=== PATIENT | male | born 1965 | race Caucasian/White ===

== ENCOUNTER 2016-05-01 10:00 | Emergency (ER) | payer OTHER ==
--- NOTE | 2016-05-01 11:01 | ED ---
General Adult HPI - General Chief complaint: Fall Stated complaint: fall off roof Time Seen by Provider: 05/01/16 10:48 Source: patient, family, RN notes reviewed Mode of arrival: wheelchair Limitations: no limitations - History of Present Illness Initial comments: Patient 50-year-old male who presents emergency room today with a chief complaint of a fall that occurred approximately 2 hours ago. Patient does admit that he was climbing up onto a roof when the ladder fell out from underneath him and he fell approximately 9 feet. States landed on his feet and then rolled off to the left side. Patient denies any head injury or loss conscious. Does admit to pain to his ankles bilaterally. Patient denies any other complaints or injuries. Patient denies any recent fever, chills, shortness of breath, chest pain, back pain, abdominal pain, nausea or vomiting, numbness or tingling, dysuria or hematuria, constipation or diarrhea, headaches or visual changes, or any other complaints. - Related Data Home Medications Medication Instructions Recorded Confirmed Allopurinol [Zyloprim] 300 mg PO DAILY 05/01/16 05/01/16 Chlorthalidone [Hygroten] 50 mg PO DAILY 05/01/16 05/01/16 Metoprolol Succinate (ER) [Toprol 100 mg PO DAILY 05/01/16 05/01/16 Xl] Previous Rx's Medication Instructions Recorded Hydrocodone/Acetaminophen [[place] 1 each PO Q6HR PRN #20 tab 05/01/16 5-325] Allergies Allergy/AdvReac Type Severity Reaction Status Date / Time No Known Allergies Allergy Verified 05/01/16 10:43 Review of Systems ROS Statement: Those systems with pertinent positive or pertinent negative responses have been documented in the HPI. ROS Other: All systems not noted in ROS Statement are negative. Past Medical History Past Medical History: Hypertension History of Any Multi-Drug Resistant Organisms: None Reported Past Surgical History: No Surgical Hx Reported Past Psychological History: No Psychological Hx Reported Smoking Status: Never smoker Past Alcohol Use History: Occasional Past Drug Use History: None Reported General Exam - General Exam Comments Initial Comments: General: The patient is awake and alert, in no distress, and does not appear acutely ill. Eye: Pupils are equal, round and reactive to light, extra-ocular movements are intact. No nystagmus. There is normal conjunctiva bilaterally. No signs of icterus. Ears, nose, mouth and throat: There are moist mucous membranes and no oral lesions. Neck: The neck is supple, there is no tenderness or JVD. Cardiovascular: There is a regular rate and rhythm. No murmur, rub or gallop is appreciated. Respiratory: Lungs are clear to auscultation, respirations are non-labored, breath sounds are equal. No wheezes, stridor, rales, or rhonchi. Gastrointestinal: Soft, non-distended, non-tender abdomen without masses or organomegaly noted. There is no rebound or guarding present. No CVA tenderness. Bowel sounds are unremarkable. Musculoskeletal: Normal ROM. Normal appearance of cervical, thoracic, lumbar spine. No step-offs for is appreciated. Patient does have moderate swelling to the right ankle over the lateral malleolus. Locally tender to both medial and lateral malleolus on the right side. No tenderness down to the right foot. I'll tenderness at the distal left fifth metatarsal. No other bony tenderness in the left foot. Mild tenderness over the lateral malleolus of the left ankle. No tenderness over the fibular head bilaterally. No tenderness to the hips. Strength 5/5. Sensation intact. Pulses equal bilaterally 2+. Neurological: A&O x 3. CN II-XII intact, There are no obvious motor or sensory deficits. Coordination appears grossly intact. Speech is normal. Skin: Skin is warm and dry and no rashes or lesions are noted. Psychiatric: Cooperative, appropriate mood & affect, normal judgment. Limitations: no limitations Course Vital Signs 05/01/16 10:29 Temperature 97.8 F Pulse Rate 77 Respiratory 16 Rate Blood Pressure 149/82 O2 Sat by Pulse 96 Oximetry Medical Decision Making - Medical Decision Making X-rays reviewed shows no acute fracture or dislocations. Does show evidence for old fracture and a possible subluxation of talus of the right ankle. Results were discussed with the patient. Case discussed with attending physician . Patient has been splinted in short leg posterior OCL splint. Neurovascular rechecked and intact. We'll discharge home advised follow-up with orthopedics over the next 2 days. Disposition Clinical Impression: Fall, Ankle injury Disposition: HOME SELF-CARE Condition: Good Instructions: Ankle Sprain (ED) Additional Instructions: Please see splinted in place follow-up with orthopedics over the next 2 days. Please continue to ice elevate the affected area. Please use crutches with nonweightbearing. Please return to emergency room for any other concerns. Prescriptions: Hydrocodone/Acetaminophen [[place] 5-325] 1 each PO Q6HR PRN #20 tab PRN Reason: Pain Referrals: Jerry Monroe MD [Primary Care Provider] - 1-2 days Lauro Wilson MD [STAFF PHYSICIAN] - 1-2 days Time of Disposition: 12:41
--- NOTE | 2016-05-01 11:42 | XR ---
Bilateral legs HISTORY: Trauma and pain 2 views of the left and 2 views of the right leg are submitted on a total of 4 images Degenerative changes are present at the tibiotalar joints. There is soft tissue swelling present bila terally. Small ossific densities distal to the fibula and medial malleolus on the right are well nuria icated and not felt likely to be acute. Possible osteochondral defect at the lateral ankle mortise on the right and left. Lucency at the insertion at the tibial tubercle on the right may be a normal cheryl iant, correlate for point tenderness. Enthesophyte present at the origin of the patellar tendon on th e right. Some minimal thickening along the proximal left tibial diaphysis shows a nonaggressive appea pillo. This may BE due to old trauma. IMPRESSION: No acute abnormality suspected. Follow-up as indicated
--- NOTE | 2016-05-01 11:45 | XR ---
Bilateral ankles HISTORY: Trauma and pain 3 views of the left and 3 views of the right ankle are submitted. There is some widening of the tibiotalar joint medially on the right. Ossific densities are present w hich are felt likely to be well-corticated about the right ankle. There is soft tissue swelling prese nt. Osteochondral defect present laterally at the ankle mortise on the left and on the right. There are degenerative changes at the tibiotalar joints bilaterally. Enthesophyte present at the inse rtion of the Achilles tendon bilaterally. Some calcifications present along the plantar aponeurosis. Degenerative changes also present at the intertarsal joints. Small plantar calcaneal spur on the left . IMPRESSION: Findings suggest subluxation of the talus in relation to the distal right tibia, of quest ionable age, there is evidence of old trauma at the ankles with secondary osteoarthritic change. No a cute fracture is suspected. Consider ankle MRI.
--- NOTE | 2016-05-01 11:50 | XR ---
Left foot HISTORY: Trauma and pain 3 views of the left foot There are ossific densities about the left ankle as described in previous report. These appear well c orticated and are not felt likely to be acute. Within the foot the bone mineralization, joint spaces and alignment are maintained. Degenerative changes are present at the first metatarsophalangeal joint however. There is a small plantar calcaneal spur. Enthesophyte present at the insertion of the Achil les tendon. There is a plantar aponeurosis calcification. IMPRESSION: No acute fracture or dislocation is evident.
[2016-05-01] MEDS ORDERED: HYDROcodone/APAP 5-325MG 1 EACH TAB PO STA (12:41)
[2016-05-01 13:01] VITALS: BP 129/61; PULSE 73; RESP 20; TEMP 97
== END 2016-05-01 13:02 | disposition home or self-care (01) ==
LOC: EC 10:00
DX: S99.911A Unspecified injury of right ankle, initial encounter (principal); I10 Essential (primary) hypertension; Z79.899 Other long term (current) drug therapy; W13.2XXA Fall from, out of or through roof, initial encounter; Y93.39 Activity, other involving climbing, rappelling and jumping off
CPT/HCPCS: 29515; 99284

== ENCOUNTER → 2016-05-10 | Outpatient (CLI) | payer OTHER ==
--- NOTE | 2016-05-10 10:41 | CT ---
EXAMINATION TYPE: CT ankle RT wo con, CT ankle LT wo con DATE OF EXAM: 05/10/2016 10:26 AM COMPARISON: NONE HISTORY: bilateral ankle pain following fall CT DLP: 322 mGycm Automated exposure control for dose reduction was used. FINDINGS: There are numerous ossific densities which are well corticated distal to the distal fibula and medial malleolus bilaterally, worse on the right than the left. There are bilateral Achilles spurs arising from the calcaneus. There is a small plantar spur seen arising from the right calcaneus. There are sm all ossific densities present related to the talus likely degenerative in nature. There is a minimall y displaced fracture of the right talus. No definite fracture is noted on the left. IMPRESSION: 1. MINIMALLY DISPLACED FRACTURE OF THE RIGHT TALUS. 2. MARKED DEGENERATIVE CHANGE AND EVIDENCE OF OLD TRAUMA TO BOTH ANKLES. 3. CALCANEAL SPURS.
== END | disposition home or self-care (01) ==
LOC: RADCTMAIN 09:03
PROVIDERS: ATTEND Orthopaedic Surgery
DX: S92.101A Unspecified fracture of right talus, initial encounter for closed fracture (principal); M25.871 Other specified joint disorders, right ankle and foot; M25.872 Other specified joint disorders, left ankle and foot; M77.32 Calcaneal spur, left foot; M77.31 Calcaneal spur, right foot

== ENCOUNTER → 2017-07-25 | Outpatient (CLI) | payer SELFPAY | END | disposition home or self-care (01) | LOC: LABPAT 15:49 | PROVIDERS: ATTEND Orthopaedic Surgery | DX: Z01.812 Encounter for preprocedural laboratory examination (principal); M19.179 Post-traumatic osteoarthritis, unspecified ankle and foot | CPT/HCPCS: 84132 ==

== ENCOUNTER 2017-07-30 06:37 | Day surgery (SDC) | payer OTHER ==
[2017-07-22 11:38] VITALS: BMI 43.7
[2017-07-30] MEDS ORDERED: ONDANSETRON 4 MG/2 ML VIAL IVP ONE (06:52)
[2017-07-30] MEDS ORDERED: SCOPOLAMINE 1.5MG/72HR PATCH TRANSDERM ONE (06:52)
[2017-07-30] MEDS ORDERED: HYDROmorphone 0.5 MG/0.5 ML SYRINGE IVP PRN ×2 (06:52→08:36)
[2017-07-30] MEDS ORDERED: LIDOCAINE 1% 20 ML VIAL (10MG/ML) FOR IV START INTRADERMA PRN (06:52)
[2017-07-30] MEDS ORDERED: DEXAMETHASONE SOD PHOSPHATE 10 MG/ML 1 ML VIAL IV ONE (06:52)
[2017-07-30] MEDS ORDERED: MIDAZOLAM 2 MG/2 ML VIAL IV PRN (06:52)
[2017-07-30] MEDS: LACTATED RINGERS 1,000 ML IV SCH (07:29)
[2017-07-30 07:39] LABS: Glucose,Whole Blood 121 mg/dL (75-99)
[2017-07-30] MEDS ORDERED: HYDROcodone/APAP 10-325MG 1 EACH TAB PO PRN (08:36)
[2017-07-30] MEDS ORDERED: MAGNESIUM HYDROXIDE 2,400 MG/10 ML CUP PO PRN (08:36)
[2017-07-30] MEDS ORDERED: ONDANSETRON 4 MG/2 ML VIAL IVP PRN (08:36)
[2017-07-30] MEDS ORDERED: BISACODYL 10 MG SUPP RECTAL PRN (08:36)
[2017-07-30] MEDS ORDERED: DIAZEPAM 5 MG TAB PO PRN (08:36)
[2017-07-30] MEDS ORDERED: NALOXONE 0.4 MG/ML 1 ML VIAL IV PRN (08:36)
[2017-07-30] MEDS ORDERED: LACTATED RINGERS 1,000 ML IV ONE ×2 (09:05→12:02)
--- NOTE | 2017-07-30 11:23 | FL ---
EXAMINATION TYPE: FL guidance operating room DATE OF EXAM: 07/30/2017 HISTORY: Flouroscopy time 2 minutes and 29 seconds of fluoroscopy provided. IMPRESSION: 1. Fluoroscopy time.
--- NOTE | 2017-07-30 11:24 | XR ---
EXAMINATION TYPE: XR ankle limited RT DATE OF EXAM: 07/30/2017 COMPARISON: NONE TECHNIQUE: Three views submitted HISTORY: Post op FINDINGS: There is postsurgical change in near anatomic alignment. IMPRESSION: 1. Postoperative change. Appears in near-anatomic alignment
[2017-07-30] MEDS ORDERED: HYDROmorphone 1 MG/ML 1 ML SYRINGE IVP ONE (11:40)
[2017-07-30] MEDS ORDERED: diphenhydrAMINE 50 MG/ML 1 ML VIAL IVP ONE (11:49)
[2017-07-30] MEDS: SODIUM CHLORIDE 0.9% 1,000 ML IV SCH ×3 (13:15→23:28)
[2017-07-30] MEDS ORDERED: fentaNYL (PF) 50 MCG/ML 2 ML AMP IV ONE (13:20)
--- NOTE | 2017-07-30 13:55 | P.ONQ ---
Anesthesiology Proc Note - PNB - Peripheral Nerve Block Performed Right Popliteal Procedure Start Time: 13:20 Indication: Acute Post-Operative Pain, Requested by physician (Dr Larry) Sedation Type: Sedate with meaningful contact maintained Preparation: Sterile Prep Position: Supine (Lateral) Catheter: None Needle Types: Other (see comment) (Luis) Needle Size: 100mm (4") Needle Gauge: 21 Injectate: 0.5% Ropivacaine (see comment for volume) (22cc) Blood Aspirated: No Pain Paresthesia on Injection Noted: No Resistance on Injection: Normal Events: Uneventful and Well Tolerated
[2017-07-30] MEDS ORDERED: ceFAZolin 3 GM in SODIUM CHLORIDE 0.9% 100 ML IVPB SCH (16:00)
--- NOTE | 2017-07-30 16:03 | OP ---
OPERATIVE REPORT DATE OF SURGERY: 07/30/2017. PREOPERATIVE DIAGNOSES: 1. Right posttraumatic ankle arthritis. 2. 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 3. Morbid obesity. 4. History of recent work-related talar head fracture and ankle fracture resulting in exacerbation of preexisting posttraumatic ankle arthritis. POSTOPERATIVE DIAGNOSES: 1. Right posttraumatic ankle arthritis. 2. 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 3. Morbid obesity. 4. History of recent work-related talar head fracture and ankle fracture resulting in exacerbation of preexisting posttraumatic ankle arthritis. PROCEDURE PERFORMED: 1. Right tibiotalar joint arthrodesis through a lateral transpedicular approach. 2. Application of short-leg splint by physician. SURGEON: Dr. Sam Degroot. TOOL SETTER APPRENTICE: None. ANESTHESIA: General. FLUIDS: 1400 mL crystalloid. BLOOD LOSS: 25 mL. TOURNIQUET TIME: 120 minutes. INDICATIONS: The patient is a very pleasant 51-year-old male with a medical history significant for prediabetes and morbid obesity. The patient sustained an injury to his ankle over 20 years ago resulting in a chronic syndesmotic disruption, which resulted in posttraumatic arthritis. Last year, the patient sustained a work-related injury when he fell off a roof exacerbating his preexisting arthritis and causing several non operatively managed fractures. He was initially managed nonsurgically, but continued to have pain referable to his ankle arthritis. We attempted initially to treat him nonoperatively with activity modification, anti-inflammatories, corticosteroid injections, and physical therapy. Most of the patient's symptoms were in the anterior aspect of the ankle. We discussed continued nonoperative treatment and different operative interventions. The patient was initially reluctant to go forward with an ankle fusion and requested an ankle arthroscopy to perform debridement. An ankle arthroscopy was performed and he was noted to have diffuse degenerative changes. He had minimal relief with the arthroscopy. He continued to have pain and requested surgery. I had a lengthy discussion with the patient and his on treatment of posttraumatic arthritis. We discussed both fusion and replacement. Due to the patient's relatively young age, of being less than 50, his morbid obesity, his active lifestyle and his desire to remain active, my recommendation was to perform an ankle arthrodesis. My recommendation was to perform a lateral transfibular approach rather than an anterior approach due to his syndesmotic arthritis. We discussed the potential risks and complications of surgery including, but not limited to risk of anesthesia, risk of superficial infection, risk of deep infection, risk of delayed wound healing, risk of wound necrosis, risk of nonunion to the fusion site, risk of malunion of the fusion site, risk of adjacent joint arthritis, risk of symptomatic hardware, risk of hardware failure, risk of DVT, risk of PE, risk of ongoing pain, risk of worsening pain, risk of need for assistive device, risk of generalized dissatisfaction with surgery, and possibly loss of life or limb. The patient understands his risks and that he is at a higher risk being obese and having prediabetes. He provided his verbal and written consent to go forward with the above-mentioned procedure. DESCRIPTION OF PROCEDURE: The patient was identified in preoperative holding. The correct right ankle was marked with my initials. I reviewed the consent form with the patient and his . All their questions were answered. The patient was then brought back to the operating room. He was positioned on the OR table under general anesthetic and preoperative antibiotics were administered. A tourniquet was applied to the proximal aspect of the right leg. A bump was placed under the right buttock internally rotating the right leg. The left leg was secured to the table with foam and tape. The right arm was draped across the body and secured with tape. A ramp was placed under the leg to elevate the extremity and facilitate imaging. The right leg was then prepped and draped in the standard sterile fashion. Prior to starting surgery, a time-out was performed identifying the correct patient, operative extremity, and procedure. The tourniquet was then inflated after the leg was exsanguinated. I began by outlining a longitudinal incision over the posterior half of the fibula and angled 45 degrees anteriorly at the tip of the lateral malleolus. Skin incision was made with a 15 blade scalpel. Dissection was carried down to the subcutaneous tissue. Crossing veins were controlled with electrocautery. The periosteum over the distal fibula was incised longitudinally in line with the skin incision. The fibula was then exposed distally. The Hohmann retractors were placed anterior and posterior to the fibula. Using a small microsagittal cut, an oblique osteotomy was made just proximal to the syndesmosis. The anterior soft tissues and syndesmotic ligaments were released and the fibula was booked open. The medial 3rd of the fibula was cut in the sagittal plane using a microsagittal saw. This was passed off to the back table to use as bone graft. The syndesmosis appeared markedly degenerative with multiple subchondral cysts and soft tissue. This was debrided down to bone. A lamina truck sales manager was then used to open up the ankle joint. On inspection, there was a large amount of fibrous scar tissue in the anterior recess of the ankle. There was full loss of articular cartilage from the lateral two thirds of the talar dome. There was full thickness cartilage loss diffusely throughout the tibial plafond. Using a series of curved and straight osteotomes and curettes, the remaining articular cartilage was removed down to subchondral bone. Once all the cartilage was removed, a 2.0 mm drill bit was used to perforate the exposed subchondral bone of the tibial plafond and talar dome lateral wall of the talus and syndesmosis to help facilitate bleeding and fusion. The talus was felt to be adequately medialized, so a medial arthrotomy was not made. I then mixed the crushed bone from the fibula with Augment and beta granules. This was placed into the fusion site. Once the fusion site had been adequately compressed and the augment and bone graft mixture was placed, I positioned the foot for fusion. It was placed in neutral dorsiflexion and slight external rotation and slight valgus. I then placed K-wires medially and laterally for cannulated 5.5 mm screws and had an escrow assistant drive them across the ankle joint and into the talus. The position of the K-wires was verified. A drill was used over the guidewires through the tibia up to the level of the joint. Partially threaded 5.5 mm screws were placed. The leg was then placed in the figure of four position. A stab incision was made directly over the Achilles tendon. A K-wire was then placed just medial to the Achilles tendon over the posterior cortex of the tibia. The wire was then driven across the posterior plafond and into the talus. A drill bit was used to drill across the posterior aspect of the tibia up to the level of the ankle joint. A partially threaded 7.0 mm screw was then placed. I verified that the screw was within the talus on an AP view of the foot. At this point, the fibula was placed back over the lateral aspect of the fusion mass. A 2.5 mm drill bit was used to create a path for a fully-threaded 3.5 mm screws across the fibula into the distal tibia and talus. Final fluoroscopic images were taken including an AP view and a lateral view and an AP view of the foot. Clinically, the ankle appeared to be in neutral and acceptable rotation. The wound was carefully irrigated. The periosteum over the fibula was closed with a running 0 Vicryl. The deep subcu was reapproximated using 2-0 Vicryl. The skin was closed with fang. Stab incisions from the screws medially and posteriorly were closed with 3-0 nylon horizontal mattress stitches. The tourniquet was let down. Total tourniquet time of 120 minutes. The tip of the toes were pink with brisk capillary refill. A sterile dressing consisting of Betadine- soaked Adaptic, 4 x 4 and Webril was placed. The drapes were taken down. A well- padded bulky Cali splint was placed with the ankle in neutral. I verified that all instrument, sponge and sharp counts were correct. The patient was then woken from his anesthetic, transferred from the OR table to a gurney and brought to PACU having tolerated procedure well. POSTOPERATIVE PLAN: The patient is going to be admitted overnight for pain control and postoperative antibiotics. He will be treated with Lovenox for DVT prophylaxis while in-house. He can be discharged home tomorrow if his pain is adequately controlled and he passes physical therapy. MMRAYNEL / IJN: [id number] /
[2017-07-30] MEDS: FAMOTIDINE 20 MG TAB PO SCH (16:14)
[2017-07-30 17:44] LABS: Glucose,Whole Blood 147 mg/dL (75-99)
[2017-07-30] MEDS: INSULIN ASPART 100 UNIT/ML 1 ML 10 ML VIAL SQ SCH ×2 (17:53→21:37)
[2017-07-30] MEDS: glipiZIDE 10 MG TAB PO SCH (17:53)
[2017-07-30] MEDS: hydrALAZINE HCL 50 MG TAB PO SCH ×2 (18:27→21:36)
--- NOTE | 2017-07-30 20:53 | P.HPIM ---
History of Present Illness This is a pleasant 51 years old male with past medical history of diabetes mellitus, type II. Hypertension. Gout. Right ankle injury in 2017. He was admitted by the orthopedic service for right ankle evaluation. Patient underwent right ankle arthroscopy and extensive synovectomy on 04/03/2017. Patient has been going for physical therapy of his right ankle which was not much beneficiary as per patient and he still have 3/10 right ankle pain. he is status post right ankle arthrodesis today at july. when i saw the pt he was already resting in bed, the right ankle is in big dressing or cast. as per staff , there was some bleeding at the surgical site and orthopedic team are recommending BP control. .We have been consulted for medical management. Review of Systems CONSTITUTIONAL: No fever, no malaise, no fatigue. HEENT: No recent visual problems or hearing problems. Denied any sore throat. CARDIOVASCULAR: No orthopnea, PND, no palpitations, no syncope. PULMONARY: No shortness of breath, no cough, no hemoptysis. GASTROINTESTINAL: No diarrhea, no nausea, no vomiting, no abdominal pain. Normoactive bowel sounds. NEUROLOGICAL: No headaches, no weakness, no numbness. HEMATOLOGICAL: Denies any bleeding or petechiae. GENITOURINARY: Denies any burning micturition, frequency, or urgency. MUSCULOSKELETAL/RHEUMATOLOGICAL: Denies any joint pain, swelling, or any muscle pain. except at surgical site ENDOCRINE: Denies any polyuria or polydipsia. Past Medical History Past Medical History: Diabetes Mellitus, Hypertension, Musculoskeletal Disorder Additional Past Medical History / Comment(s): GOUT. RT ANKLE INJURY 2017. History of Any Multi-Drug Resistant Organisms: None Reported Past Surgical History: Orthopedic Surgery Additional Past Surgical History / Comment(s): 03/2017 RT ANKLE SURG. Past Anesthesia/Blood Transfusion Reactions: No Reported Reaction Past Psychological History: No Psychological Hx Reported Smoking Status: Never smoker Past Alcohol Use History: Occasional Past Drug Use History: None Reported - Past Family History Mother Family Medical History: Diabetes Mellitus Medications and Allergies Home Medications Medication Instructions Recorded Confirmed Type Allopurinol [Zyloprim] 300 mg PO DAILY 05/01/16 07/30/17 History Chlorthalidone [Hygroten] 50 mg PO DAILY 05/01/16 07/30/17 History Metoprolol Succinate (ER) [Toprol 100 mg PO DAILY 05/01/16 07/30/17 History Xl] RX: metFORMIN HCL 1,000 mg PO BID 07/22/17 07/30/17 History glipiZIDE [Glucotrol] 10 mg PO AC-BID 07/22/17 07/30/17 History hydrALAZINE HCL [Apresoline] 50 mg PO TID 07/22/17 07/30/17 History Allergies Allergy/AdvReac Type Severity Reaction Status Date / Time No Known Allergies Allergy Verified 07/30/17 07:15 Physical Exam Vitals: Vital Signs Temp Pulse Pulse Resp BP Pulse Ox 07/30/17 13:35 89 16 135/78 97 07/30/17 13:20 80 16 135/67 96 07/30/17 12:00 85 16 139/68 98 07/30/17 11:45 84 16 139/73 99 07/30/17 11:28 97.5 F L 82 16 140/69 96 07/30/17 07:12 98.3 F 82 16 146/96 98 Intake and Output 07/30/17 07/30/17 07/30/17 06:59 14:59 22:59 Intake Total 3050 Output Total 20 Balance 3030 Intake: IV 3050 Output: Estimated Blood Loss 20 Other: Weight 138.346 kg GENERAL: The patient is alert and oriented x3, not in any acute distress. obese HEENT: Pupils are round and equally reacting to light. EOMI. No scleral icterus. No conjunctival pallor. Normocephalic, atraumatic. No pharyngeal erythema. No thyromegaly. CARDIOVASCULAR: S1 and S2 present. No murmurs, rubs, or gallops. PULMONARY: Chest is clear to auscultation, no wheezing or crackles. ABDOMEN: Soft, nontender, nondistended, normoactive bowel sounds. No palpable organomegaly. MUSCULOSKELETAL: No joint swelling or deformity. EXTREMITIES: No cyanosis, clubbing, or pedal edema. -right ankle is in big surrounding dressing, deffer the exam to the surgical team NEUROLOGICAL: Gross neurological examination did not reveal any focal deficits. SKIN: No rashes. Results Labs: Abnormal Lab Results - Last 24 Hours (Table) 07/30/17 Range/Units 07:25 POC Glucose (mg/dL) 121 H (75-99) mg/dL Thrombosis Risk Factor Assmnt - Choose All That Apply Each Factor Represents 1 point: Age 41-60 years Thrombosis Risk Factor Assessment Total Risk Factor Score: 1 Thrombosis Risk Factor Assessment Level: Low Risk Assessment and Plan Assessment: -Right ankle injury, status post arthroscopy and sinusectomy -Diabetes mellitus, type II -Hypertension, essential -History of gout Plan: We'll continue with the same treatment of the patient including symptomatic treatment. The primary surgical team are following the patient for her right ankle pain and lesion and post surgical care. pain and DVT prophylaxis as per primary team, patient is to continue on his home medication of metformin, hydralazine, glipizide, metoprolol, chlorthalidone and allopurinol. Further recommendation based on the clinical findings and course
[2017-07-30 21:12] LABS: Glucose,Whole Blood 204 mg/dL (75-99)
[2017-07-30] MEDS: SENNOSIDES-DOCUSATE SODIUM 1 EACH TAB PO SCH (21:36)
[2017-07-30] MEDS: metFORMIN 500 MG TAB PO SCH (21:36)
[2017-07-30] MEDS: ENOXAPARIN 30 MG/0.3 ML SYRINGE SQ SCH ×2 (21:37→21:53)
[2017-07-31] MEDS: HYDROcodone/APAP 10-325MG 1 EACH TAB PO PRN ×4 (05:03→22:30)
[2017-07-31 06:58] LABS: Glucose,Whole Blood 140 mg/dL (75-99)
[2017-07-31] MEDS: glipiZIDE 10 MG TAB PO SCH ×2 (07:08→17:05)
[2017-07-31] MEDS: CHLORTHALIDONE 25 MG TAB PO SCH (07:48)
[2017-07-31] MEDS: metFORMIN 500 MG TAB PO SCH ×2 (07:48→21:07)
[2017-07-31] MEDS: FAMOTIDINE 20 MG TAB PO SCH (07:48)
[2017-07-31] MEDS: hydrALAZINE HCL 50 MG TAB PO SCH ×3 (07:48→21:07)
[2017-07-31] MEDS: ALLOPURINOL 300 MG TAB PO SCH (07:49)
[2017-07-31] MEDS: INSULIN ASPART 100 UNIT/ML 1 ML 10 ML VIAL SQ SCH ×4 (07:49→22:07)
[2017-07-31] MEDS: ENOXAPARIN 30 MG/0.3 ML SYRINGE SQ SCH ×2 (07:50→21:07)
[2017-07-31] MEDS: METOPROLOL SUCCINATE (ER) 100 MG TAB.ER.24H PO SCH (07:54)
--- NOTE | 2017-07-31 09:07 | P.PN ---
Subjective Progress Note Date: 07/31/17 Principal diagnosis: S/P Right tibiotalar joint arthrodesis Patient is seen at bedside this morning. He is postop day #1 from Right tibiotalar joint arthodesis. He has mild pain at the surgical site as expected. He had a nerve block post op and has some numbness across the dorsum of his toes that he states that he didn't have prior to the block. He denies any other new complaints. Review of systems is negative for calf pain, fever, chills, chest pain, shortness of breath or other Objective - Vital Signs Vital signs: Vital Signs Temp 98.3 F 07/31/17 01:30 Pulse 86 07/31/17 01:30 Resp 16 07/31/17 01:30 BP 160/71 07/31/17 01:30 Pulse Ox 96 07/31/17 01:30 Intake & Output 07/30/17 07/31/17 07/31/17 18:59 06:59 18:59 Intake Total 3050 1450 Output Total 20 0 Balance 3030 -600 Weight 138.346 kg Intake: IV 3050 Intake, IV Titration 1450 Amount Sodium Chloride 0.9% 1, 1350 000 ml @ 100 mls/hr IV . Q10H [facility] Rx#:[id number] ceFAZolin 3 gm In Sodium 100 Chloride 0.9% 50 ml @ 100 mls/hr IVPB Q8HR [facility] Rx# :[id number] Output: Urine 2049 Estimated Blood Loss 20 Other: # Voids 1 - Exam Inspection of right lower extremity shows well padded splint in place. It has been reinforced and there is no evidence of active bleeding through new bandage. There is adequate perfusion in all toes. He has active flexion in all digits. He has numbness to light touch across the dorsum of all toes and unable to actively extend all digits likely secondary to nerve block. Leg proximal to splint is benign. - Constitutional General appearance: Present: no acute distress - Psychiatric Psychiatric: Present: A&O x's 3, appropriate affect, intact judgment & insight - Labs Labs: Abnormal Lab Results - Last 24 Hours (Table) 07/30/17 07/30/17 07/31/17 Range/Units 17:42 21:11 06:44 POC Glucose (mg/dL) 147 H 204 H 140 H (75-99) mg/dL Assessment and Plan (1) Post-traumatic arthritis of ankle Narrative/Plan: He will continue with routine postop orthopedic protocol including pain management, wound care, physical therapy, DVT prophylaxis and medical management. Will check CBC and monitor his status. Expect D/C to home tomorrow. Current Visit: Yes Status: Acute Priority: Medium Code(s): M19.179 - POST- TRAUMATIC OSTEOARTHRITIS, UNSPECIFIED ANKLE AND FOOT SNOMED Code(s): 632874473 Time with Patient: Less than 30
[2017-07-31 09:18] LABS: Basophils % (A) 0 %; Eosinophils # (A) 0.1 k/uL (0-0.7); Eosinophils % (A) 1 %; HCT 40.3 % (39.0-53.0); HGB 13.8 gm/dL (13.0-17.5); Lymphocytes % (A) 29 %; MCH 28.5 pg (25.0-35.0); MCHC 34.1 g/dL (31.0-37.0); MCV 83.6 fL (80.0-100.0); Mean Platelet Volume 7.8; Monocytes # (A) 0.8 k/uL (0-1.0); Monocytes % (A) 8 %; Neutrophils # (A) 6.3 k/uL (1.3-7.7); Neutrophils % (A) 61 %; Platelet Count 178 k/uL (150-450); RBC 4.82 m/uL (4.30-5.90); RDW 13.4 % (11.5-15.5); WBC 10.3 k/uL (3.8-10.6)
[2017-07-31] MEDS: hydrOXYzine PAMOATE 25 MG CAP PO PRN ×3 (10:38→22:30)
--- NOTE | 2017-07-31 11:24 | P.PN ---
Subjective This is a pleasant 51 years old male with past medical history of diabetes mellitus, type II. Hypertension. Gout. Right ankle injury in 2017. He was admitted by the orthopedic service for right ankle evaluation. Patient underwent right ankle arthroscopy and extensive synovectomy on 04/03/2017. Patient has been going for physical therapy of his right ankle which was not much beneficiary as per patient and he still have 3/10 right ankle pain. he is status post right ankle arthrodesis today at july. when i saw the pt he was already resting in bed, the right ankle is in big dressing or cast. as per staff , there was some bleeding at the surgical site and orthopedic team are recommending BP control. .We have been consulted for medical management. Objective - Vital Signs Vital signs: Vital Signs Temp 98 F 07/31/17 07:10 Pulse 90 07/31/17 07:10 Resp 15 07/31/17 07:10 BP 140/79 07/31/17 07:10 Pulse Ox 97 07/31/17 07:10 Intake & Output 07/30/17 07/31/17 07/31/17 18:59 06:59 18:59 Intake Total 3050 1450 Output Total 20 2050 400 Balance 3030 -600 -400 Weight 138.346 kg Intake: IV 3050 Intake, IV Titration 1450 Amount Sodium Chloride 0.9% 1, 1350 000 ml @ 100 mls/hr IV . Q10H [facility] Rx#:[id number] ceFAZolin 3 gm In Sodium 100 Chloride 0.9% 50 ml @ 100 mls/hr IVPB Q8HR [facility] Rx# :[id number] Output: Urine 2049 400 Estimated Blood Loss 20 Other: # Voids 1 - Exam GENERAL: The patient is alert and oriented x3, not in any acute distress. obese HEENT: Pupils are round and equally reacting to light. EOMI. No scleral icterus. No conjunctival pallor. Normocephalic, atraumatic. No pharyngeal erythema. No thyromegaly. CARDIOVASCULAR: S1 and S2 present. No murmurs, rubs, or gallops. PULMONARY: Chest is clear to auscultation, no wheezing or crackles. ABDOMEN: Soft, nontender, nondistended, normoactive bowel sounds. No palpable organomegaly. MUSCULOSKELETAL: No joint swelling or deformity. EXTREMITIES: No cyanosis, clubbing, or pedal edema. -right ankle is in big surrounding dressing, deffer the exam to the surgical team NEUROLOGICAL: Gross neurological examination did not reveal any focal deficits. SKIN: No rashes. - Labs CBC & Chem 7: 07/31/17 06:39 Labs: Abnormal Lab Results - Last 24 Hours (Table) 07/30/17 07/30/17 07/31/17 Range/Units 17:42 21:11 06:44 POC Glucose (mg/dL) 147 H 204 H 140 H (75-99) mg/dL Assessment and Plan Assessment: -Right ankle injury, status post arthroscopy and sinusectomy -Diabetes mellitus, type II -Hypertension, essential -History of gout Plan: We'll continue with the same treatment of the patient including symptomatic treatment. The primary surgical team are following the patient for her right ankle pain and lesion and post surgical care. He got nerve block for surgical team. pain and DVT prophylaxis as per primary team, and he is on Lovenox. patient is to continue on his home medication of metformin, hydralazine, glipizide, metoprolol, chlorthalidone and allopurinol. Further recommendation based on the clinical findings and course Patient was possible discharge home tomorrow. We'll check his BMP. Patient instructed to follow up with his PCP in one week after discharge and he agrees. He states he is going to follow up with his surgeon in 2 weeks
[2017-07-31 11:39] LABS: Glucose,Whole Blood 119 mg/dL (75-99)
[2017-07-31 11:44] LABS: Calcium 8.3 mg/dL (8.4-10.2); Potassium 3.7 mmol/L (3.5-5.1)
[2017-07-31] MEDS: MULTIVITAMINS, THERA 1 EACH TAB PO SCH (12:00)
[2017-07-31] MEDS ORDERED: ERGOCALCIFEROL 50,000 UNIT CAP PO SCH (12:45)
[2017-07-31 14:34] LABS: Hemoglobin A1C 5.3 % (4.0-6.0)
[2017-07-31 14:54] VITALS: RESP 16
[2017-07-31 16:59] LABS: Glucose,Whole Blood 113 mg/dL (75-99)
[2017-07-31] MEDS: CALCIUM CARBONATE 500 MG CHEWABLE PO SCH ×2 (17:05→21:07)
[2017-07-31] MEDS: SODIUM CHLORIDE 0.9% 1,000 ML IV SCH (18:06)
[2017-07-31] MEDS: LACTATED RINGERS 1,000 ML IV SCH (21:02)
[2017-07-31] MEDS: SENNOSIDES-DOCUSATE SODIUM 1 EACH TAB PO SCH (21:07)
[2017-07-31 21:46] LABS: Glucose,Whole Blood 116 mg/dL (75-99)
[2017-08-01 01:28] VITALS: TEMP 98.8
[2017-08-01] MEDS: SODIUM CHLORIDE 0.9% 1,000 ML IV SCH ×2 (01:54→11:16)
[2017-08-01] MEDS: hydrOXYzine PAMOATE 25 MG CAP PO PRN ×2 (03:53→10:15)
[2017-08-01] MEDS: HYDROcodone/APAP 10-325MG 1 EACH TAB PO PRN ×2 (03:53→10:14)
[2017-08-01 07:06] LABS: Glucose,Whole Blood 114 mg/dL (75-99)
[2017-08-01] MEDS: LACTATED RINGERS 1,000 ML IV SCH (07:18)
[2017-08-01 08:24] VITALS: BP 146/96; PULSE 97
[2017-08-01] MEDS: INSULIN ASPART 100 UNIT/ML 1 ML 10 ML VIAL SQ SCH ×2 (08:33→12:51)
[2017-08-01] MEDS: METOPROLOL SUCCINATE (ER) 100 MG TAB.ER.24H PO SCH (08:37)
[2017-08-01] MEDS: FAMOTIDINE 20 MG TAB PO SCH (08:37)
[2017-08-01] MEDS: CALCIUM CARBONATE 500 MG CHEWABLE PO SCH (08:37)
[2017-08-01] MEDS: metFORMIN 500 MG TAB PO SCH (08:37)
[2017-08-01] MEDS: ALLOPURINOL 300 MG TAB PO SCH (08:37)
[2017-08-01] MEDS: hydrALAZINE HCL 50 MG TAB PO SCH (08:37)
[2017-08-01] MEDS: glipiZIDE 10 MG TAB PO SCH (08:37)
[2017-08-01] MEDS: ENOXAPARIN 30 MG/0.3 ML SYRINGE SQ SCH (08:38)
[2017-08-01] MEDS: CHLORTHALIDONE 25 MG TAB PO SCH (08:41)
--- NOTE | 2017-08-01 09:32 | P.DS ---
Providers Expected date of discharge: 08/01/17 Attending physician: Sam Degroot Consults: 07/30/17 12:44 Consult Physician Routine Consulting Provider: Александр Abdullahi Consult Reason/Comments: medical Do you want consulting provider notified?: Yes Primary care physician: Jerry Monroe - Discharge Diagnosis(es) (1) Post-traumatic arthritis of ankle Patient was admitted to the OR on 07/30/2017 to undergo Right Tibotalar ankle joint arthrodesis. He had failed conservative measures as an outpatient and desired to proceed with elective surgery after given informed consent. He underwent the above procedure which he tolerated well without complication. Postoperative hospital course has remained without complication. On day of discharge he is afebrile, vital signs stable, labs within acceptable ranges, tolerating by mouth meds and diet, voiding without difficulty, positive flatus, denies abdominal pain or calf pain, pain is controlled on oral pain medication and has no new complaints. Wound is benign, neurovascular status is intact, calf is soft and nontender, abdomen soft and nontender. Review of systems is negative for numbness, tingling, fever, chills, chest pain, shortness breath, nausea, vomiting, dizziness, headaches, slurred speech or other. Current Visit: Yes Status: Acute Priority: Medium Patient Condition at Discharge: Good Plan - Discharge Summary Discharge Rx Participant: No New Discharge Prescriptions: New Cholecalciferol [Vitamin D3] 2,000 unit PO DAILY #90 tablet Ergocalciferol (Vitamin D2) [Vitamin D2] 50,000 unit PO Q7DAYS #20 capsule Calcium Carbonate [Tums] 500 mg PO TID #90 chew Aspirin 325 mg PO BID #60 tab HYDROcodone/APAP 10-325MG [Penn 10-325] 1 tab PO Q4HR PRN #60 tab PRN Reason: Pain No Action Metoprolol Succinate (ER) [Toprol Xl] 100 mg PO DAILY Chlorthalidone [Hygroten] 50 mg PO DAILY Allopurinol [Zyloprim] 300 mg PO DAILY metFORMIN HCL 1,000 mg PO BID glipiZIDE [Glucotrol] 10 mg PO AC-BID hydrALAZINE HCL [Apresoline] 50 mg PO TID Discharge Medication List Allopurinol [Zyloprim] 300 mg PO DAILY 05/01/16 [History] Chlorthalidone [Hygroten] 50 mg PO DAILY 05/01/16 [History] Metoprolol Succinate (ER) [Toprol Xl] 100 mg PO DAILY 05/01/16 [History] glipiZIDE [Glucotrol] 10 mg PO AC-BID 07/22/17 [History] hydrALAZINE HCL [Apresoline] 50 mg PO TID 07/22/17 [History] metFORMIN HCL 1,000 mg PO BID 07/22/17 [History] Calcium Carbonate [Tums] 500 mg PO TID #90 chew 07/31/17 [Rx] Cholecalciferol [Vitamin D3] 2,000 unit PO DAILY #90 tablet 07/31/17 [Rx] Ergocalciferol (Vitamin D2) [Vitamin D2] 50,000 unit PO Q7DAYS #20 capsule 07/31 [Rx] Aspirin 325 mg PO BID #60 tab 08/01/17 [Rx] HYDROcodone/APAP 10-325MG [Penn 10-325] 1 tab PO Q4HR PRN #60 tab 08/01/17 [Rx] Follow up Appointment(s)/Referral(s): Jerry Monroe MD [Primary Care Provider] - 1 Week Sam Degroot MD [Medical Doctor] - 2 Weeks Activity/Diet/Wound Care/Special Instructions: 1. Non-weight bearing on your right leg. 2. Keep splint clean and dry, do not remove your splint. 3. Keep right leg elevated on a pillow as much as possible. 4. Use crutches or knee scooter to ambulate. 5. Take pain medications as prescribed. 6. Take [id number] Miralax while you are taking narcotic pain medications to prevent constipation. 7. Take aspirin 325 mg twice daily to lower your risk of having a blood clot. 8. Follow-up in the office 10-14 days after surgery. 9. Call the office with any questions or concerns. Discharge Disposition: HOME SELF-CARE
[2017-08-01 11:01] LABS: Glucose,Whole Blood 134 mg/dL (75-99)
--- NOTE | 2017-08-01 11:53 | P.PN ---
Subjective This is a pleasant 51 years old male with past medical history of diabetes mellitus, type II. Hypertension. Gout. Right ankle injury in 2017. He was admitted by the orthopedic service for right ankle evaluation. Patient underwent right ankle arthroscopy and extensive synovectomy on 04/03/2017. Patient has been going for physical therapy of his right ankle which was not much beneficiary as per patient and he still have 3/10 right ankle pain. he is status post right ankle arthrodesis today at july. when i saw the pt he was already resting in bed, the right ankle is in big dressing or cast. as per staff , there was some bleeding at the surgical site and orthopedic team are recommending BP control. .We have been consulted for medical management. Objective - Vital Signs Vital signs: Vital Signs Temp 98.8 F 08/01/17 07:30 Pulse 97 08/01/17 07:30 Resp 16 08/01/17 07:30 BP 146/96 08/01/17 07:30 Pulse Ox 94 L 08/01/17 07:30 Intake & Output 07/31/17 08/01/17 08/01/17 18:59 06:59 18:59 Intake Total 1137 700 Output Total 900 1775 Balance 237 -1075 Intake: Intake, IV Titration 700 700 Amount Sodium Chloride 0.9% 1, 700 700 000 ml @ 100 mls/hr IV . Q10H [facility] Rx#:[id number] Oral 437 Output: Urine 900 1775 Other: # Voids 1 - Exam GENERAL: The patient is alert and oriented x3, not in any acute distress. obese HEENT: Pupils are round and equally reacting to light. EOMI. No scleral icterus. No conjunctival pallor. Normocephalic, atraumatic. No pharyngeal erythema. No thyromegaly. CARDIOVASCULAR: S1 and S2 present. No murmurs, rubs, or gallops. PULMONARY: Chest is clear to auscultation, no wheezing or crackles. ABDOMEN: Soft, nontender, nondistended, normoactive bowel sounds. No palpable organomegaly. MUSCULOSKELETAL: No joint swelling or deformity. EXTREMITIES: No cyanosis, clubbing, or pedal edema. -right ankle is in big surrounding dressing, deffer the exam to the surgical team NEUROLOGICAL: Gross neurological examination did not reveal any focal deficits. SKIN: No rashes. - Labs CBC & Chem 7: 07/31/17 06:39 07/31/17 06:39 Labs: Abnormal Lab Results - Last 24 Hours (Table) 07/31/17 07/31/17 07/31/17 Range/Units 06:39 06:39 16:42 Glucose 138 H (74-99) mg/dL POC Glucose (mg/dL) 113 H (75-99) mg/dL Calcium 8.3 L (8.4-10.2) mg/dL Vitamin D 25-Hydroxy 22.0 L (30.0-100.0) ng/mL 07/31/17 08/01/17 08/01/17 Range/Units 21:25 07:02 10:59 Glucose (74-99) mg/dL POC Glucose (mg/dL) 116 H 114 H 134 H (75-99) mg/dL Calcium (8.4-10.2) mg/dL Vitamin D 25-Hydroxy (30.0-100.0) ng/mL Assessment and Plan Assessment: -Right ankle injury, status post arthroscopy and sinusectomy -Diabetes mellitus, type II -Hypertension, essential -History of gout Plan: We'll continue with the same treatment of the patient including symptomatic treatment. The primary surgical team are following the patient for her right ankle pain and lesion and post surgical care. He got nerve block per surgical team. pain and DVT prophylaxis as per primary team, and he is on Lovenox. patient is to continue on his home medication of metformin, hydralazine, glipizide, metoprolol, chlorthalidone and allopurinol. Patient has been evaluated by physical therapist as per primary team. Patient is being discharge home today. Labs and medication lists were reviewed. Patient is starting diet well. No abdominal pain, no nausea vomiting. No chest pain or dyspnea. No change in urine or bowel habits and no fever. Vitals are stable Patient instructed to follow up with his PCP in one week after discharge and he agrees. He states he is going to follow up with his surgeon in 2 weeks treatment patient already had appointments in the chart as per primary team. I talked to the patient and he agreeable to these appointments and its
[2017-08-01] MEDS ORDERED: CHOLECALCIFEROL 1,000 UNIT TAB PO SCH (12:00)
[2017-08-01] MEDS: MULTIVITAMINS, THERA 1 EACH TAB PO SCH (12:51)
== END 2017-08-01 14:50 | disposition home or self-care (01) ==
LOC: ORWHC2ENDO 06:37 → EDSTATUS 08:30 → 3SUR 11:24 → ORWHC2ENDO 08-01 14:50
PROVIDERS: ATTEND Orthopaedic Surgery
DX: M19.171 Post-traumatic osteoarthritis, right ankle and foot (principal); S93.401S Sprain of unspecified ligament of right ankle, sequela; X58.XXXS Exposure to other specified factors, sequela; S92.121D Displaced fracture of body of right talus, subsequent encounter for fracture with routine healing; X58.XXXD Exposure to other specified factors, subsequent encounter; E66.01 Morbid (severe) obesity due to excess calories; Z68.41 Body mass index [BMI] 40.0-44.9, adult; E11.9 Type 2 diabetes mellitus without complications; I10 Essential (primary) hypertension; M10.9 Gout, unspecified; Z79.84 Long term (current) use of oral hypoglycemic drugs; Z79.891 Long term (current) use of opiate analgesic; Z79.899 Other long term (current) drug therapy
CPT/HCPCS: 27870; 64450; 97161; 80048; 85025; 82306; 83036; 73600; C1713 ×2; J2250; J1200; J1100; J0690; J2405; J3010; J1650 ×2; J1170 ×3

== ENCOUNTER → 2019-03-26 | Outpatient (CLI) | payer OTHER ==
[2019-03-26 17:16] LABS: Basophils # (A) 0.1 k/uL (0-0.2); Basophils % (A) 1 %; Eosinophils # (A) 0.3 k/uL (0-0.7); Eosinophils % (A) 3 %; HCT 45.6 % (39.0-53.0); HGB 15.6 gm/dL (13.0-17.5); Lymphocytes # (A) 3.4 k/uL (1.0-4.8); Lymphocytes % (A) 35 %; MCH 29.5 pg (25.0-35.0); MCHC 34.3 g/dL (31.0-37.0); MCV 86.1 fL (80.0-100.0); Mean Platelet Volume 8.1; Monocytes # (A) 0.5 k/uL (0-1.0); Monocytes % (A) 5 %; Neutrophils # (A) 5.5 k/uL (1.3-7.7); Neutrophils % (A) 55 %; Platelet Count 209 k/uL (150-450); RDW 12.7 % (11.5-15.5); WBC 9.9 k/uL (3.8-10.6)
[2019-03-26 17:36] LABS: C Reactive Protein 5.9 mg/L (<10.0); Uric Acid 5.7 mg/dL (3.5-8.5)
[2019-03-26 22:06] LABS: Erythrocyte Sedimentation Rate 1 mm/hr (0-15)
--- NOTE | 2019-03-27 17:02 | CT ---
EXAMINATION TYPE: CT ankle RT wo con DATE OF EXAM: 03/26/2019 COMPARISON: None HISTORY: right ankle pain CT DLP: 216.[address] of the right ankle with reconstruction imaging. TECHNIQUE: Unenhanced CT of the right ankle was performed with bone and soft tissue window settings s ubmitted in the axial coronal and sagittal planes. At a separate workstation 3-D TR imaging was obta ined. FINDINGS: There is evidence of tibiotalar fusion with fixation screws are noted. There is evidence of disuse os teopenia. No evidence for acute fracture at this time. There is solid union of distal fibular fractur e. Fibulotibial fixation screws are in place as well. There is spurring noted arising from the latera l malleolar tip. Spur formation also is also noted to arise from the talus. Posterior tibial spur for mation noted. I do not see evidence for an acute fracture. Vacuum changes noted involving the anterio r facet of the tibiocalcaneal joint. IMPRESSION: 1. Extensive postoperative change about the right ankle with tibiotalar fusion as well as fibulotibia l fusion. Associated degenerative change with spur formation seen. No acute fractures are identified. No evidence for dislocation.
== END | disposition home or self-care (01) ==
LOC: RADCTMAIN 16:48
PROVIDERS: ATTEND Orthopaedic Surgery
DX: Z48.89 Encounter for other specified surgical aftercare (principal); M19.071 Primary osteoarthritis, right ankle and foot; I10 Essential (primary) hypertension; E11.9 Type 2 diabetes mellitus without complications; M25.571 Pain in right ankle and joints of right foot; M19.171 Post-traumatic osteoarthritis, right ankle and foot; M79.671 Pain in right foot; S92.101D Unspecified fracture of right talus, subsequent encounter for fracture with routine healing; Z98.890 Other specified postprocedural states
CPT/HCPCS: 36415; 84443; 84550; 85025; 85652; 86140

== ENCOUNTER 2020-10-18 07:42 | Day surgery (SDC) | payer MEDICARE ==
[2020-10-13 09:38] VITALS: BMI 40.1
[~2020-10-18 07:42] MED LIST: LACTATED RINGERS 1,000 ML IV SCH; LIDOCAINE 1% (10MG/ML) FOR IV START INTRADERMA PRN
[2020-10-18 08:15] VITALS: TEMP 97.7
[2020-10-18 08:35] LABS: Glucose,Whole Blood 151 mg/dL (75-99)
[2020-10-18] MEDS ORDERED: PROPOFOL 10 MG/ML 20 ML VIAL IV ONE (08:40)
[2020-10-18] MEDS ORDERED: LIDOCAINE 1% INJ 10MG/ML (20 ML MDV) ONE (08:40)
--- NOTE | 2020-10-18 08:42 | P.GSHP ---
History of Present Illness H&P Date: 10/18/20 CHIEF COMPLAINT: Colon screen HISTORY OF PRESENT ILLNESS: The patient is a 55-year-old male who presents for colon screen. Lower endoscopy was offered for further evaluation and management. PAST MEDICAL HISTORY: Please see list. PAST SURGICAL HISTORY: Please see list. MEDICATIONS: Please see list. ALLERGIES: Please see list. SOCIAL HISTORY: No illicit drug use FAMILY HISTORY: No reports of Crohn disease or ulcerative colitis. REVIEW OF ORGAN SYSTEMS: CONSTITUTIONAL: No reports of fevers or chills. PHYSICAL EXAM: VITAL SIGNS: Stable GENERAL: Well-developed pleasant in no acute distress. HEENT: No scleral icterus. Extraocular movements grossly intact. Moist buccal mucosa. NECK: Supple without lymphadenopathy. CHEST: Unlabored respirations. Equal bilateral excursions. CARDIOVASCULAR: Regular rate and rhythm. Distal 2+ pulses. ABDOMEN: Soft, nontender, nondistended. MUSCULOSKELETAL: No clubbing, cyanosis, or edema. ASSESSMENT: 1. Colon screen. PLAN: 1. Recommend proceeding with a lower endoscopy Past Medical History Past Medical History: Diabetes Mellitus, Hypertension, Musculoskeletal Disorder Additional Past Medical History / Comment(s): GOUT. History of Any Multi-Drug Resistant Organisms: None Reported Past Surgical History: Orthopedic Surgery Additional Past Surgical History / Comment(s): RT ANKLE SURG.x3 fused with 5 screws,1 screw removed Past Anesthesia/Blood Transfusion Reactions: No Reported Reaction, Motion Sickness Smoking Status: Never smoker - Past Family History Mother Family Medical History: Diabetes Mellitus Medications and Allergies Home Medications Medication Instructions Recorded Confirmed Type Chlorthalidone [Hygroten] 50 mg PO DAILY 05/01/16 10/18/20 History Metoprolol Succinate (ER) [Toprol 100 mg PO DAILY 05/01/16 10/18/20 History Xl] allopurinoL [Zyloprim] 300 mg PO DAILY 05/01/16 10/18/20 History hydrALAZINE HCL [Apresoline] 50 mg PO TID 07/22/17 10/18/20 History metFORMIN HCL [Glucophage] 1,000 mg PO BID 07/22/17 10/18/20 History HYDROcodone/APAP 10-325MG [Arthur 1 tab PO Q4HR PRN #60 tab 08/01/17 10/18/20 Rx 10-325] Cannabidiol (Cbd) [Epidiolex] 1 dose PO HS 10/13/20 10/18/20 History lisinopriL 20 mg PO DAILY 10/13/20 10/18/20 History Allergies Allergy/AdvReac Type Severity Reaction Status Date / Time No Known Allergies Allergy Verified 10/18/20 08:23 Surgical - Exam Vital Signs Temp Pulse Resp BP Pulse Ox 97.7 F 81 18 142/88 97 10/18/20 08:13 10/18/20 08:13 10/18/20 08:13 10/18/20 08:13 10/18/20 08:13 Results - Labs Abnormal Lab Results - Last 24 Hours (Table) 10/18/20 Range/Units 08:29 POC Glucose (mg/dL) 151 H (75-99) mg/dL
--- NOTE | 2020-10-18 09:04 | P.PCN ---
Date of Procedure: 10/18/20 Description of Procedure: PREOPERATIVE DIAGNOSIS: Family history colon cancer Colonoscopy screening, initial POSTOPERATIVE DIAGNOSIS: Transverse colon polyp OPERATION: Colonoscopy to the ileocecal valve and appendiceal orifice, cecum Colonoscopy with cold forceps biopsy SURGEON: Radha Dwyer MD. ANESTHESIA: MAC. INDICATIONS: The patient is an 55-year-old male who presents for his first colonoscopy screening. He reports family history of colon cancer uncle, grandfather. Benefits and risks were described and informed consent was obtained. DESCRIPTION OF PROCEDURE: The patient had undergone Sutab prep. The patient had been brought into the operating room and laid in the left lateral decubitus position. After adequate intravenous sedation, the rectum was examined with 2% lidocaine jelly. The prostate was unremarkable. No external hemorrhoids were encountered. The rectal tone was within normal limits. No lesions were palpated in the rectal vault. An Olympus colonoscope was advanced until the cecum, ileocecal valve and appendiceal orifice were clearly viewed. The prep was good. No sigmoid diverticulosis was encountered. Colonic polyps were found and removed. No evidence of focal colitis was found. Retroflexion of the scope demonstrated grade 1 internal hemorrhoids without active bleeding or inflammation. The colon was desufflated. The patient had tolerated the procedure well. Withdrawal time was over 6 minutes. FINDINGS: Aronchick preparation quality scale 2 (1-5) Internal hemorrhoids, grade 1 No external hemorrhoids, grade 4. No arteriovenous malformations. No sigmoid diverticulosis Removal of 1 polyp: - Cold forceps biopsy at mid transverse colon, 5 mm polyp. No focal colitis. RECOMMENDATIONS: Repeat colonoscopy 5 years, 2025 with high risk family history and personal history colon polyp Plan - Discharge Summary Discharge Rx Participant: No New Discharge Prescriptions: Continue Metoprolol Succinate (ER) [Toprol XL] 100 mg PO DAILY Chlorthalidone [Hygroten] 50 mg PO DAILY allopurinoL [Zyloprim] 300 mg PO DAILY metFORMIN HCL [Glucophage] 1,000 mg PO BID hydrALAZINE HCL [Apresoline] 50 mg PO TID HYDROcodone/APAP 10-325MG [[place] 10-325] 1 tab PO Q4HR PRN #60 tab PRN Reason: Pain lisinopriL 20 mg PO DAILY Cannabidiol (Cbd) [Epidiolex] 1 dose PO HS Discharge Medication List Chlorthalidone [Hygroten] 50 mg PO DAILY 05/01/16 [History] Metoprolol Succinate (ER) [Toprol XL] 100 mg PO DAILY 05/01/16 [History] allopurinoL [Zyloprim] 300 mg PO DAILY 05/01/16 [History] hydrALAZINE HCL [Apresoline] 50 mg PO TID 07/22/17 [History] metFORMIN HCL [Glucophage] 1,000 mg PO BID 07/22/17 [History] HYDROcodone/APAP 10-325MG [[place] 10-325] 1 tab PO Q4HR PRN #60 tab 08/01/17 [Rx] Cannabidiol (Cbd) [Epidiolex] 1 dose PO HS 10/13/20 [History] lisinopriL 20 mg PO DAILY 10/13/20 [History] Follow up Appointment(s)/Referral(s): Radha Dwyer MD [STAFF PHYSICIAN] - As Needed Patient Instructions/Handouts: Colorectal Polyps (DC), *Surgery [facility] - (Anesthesia) Endoscopy Discharge Instructions, Colonoscopy (DC) Activity/Diet/Wound Care/Special Instructions: Repeat colonoscopy 5 years, 2025 Discharge Disposition: HOME SELF-CARE
[2020-10-18 09:29] VITALS: BP 128/72; PULSE 81; RESP 18
== END 2020-10-18 09:41 | disposition home or self-care (01) ==
LOC: ORWHC2ENDO 07:42
PROVIDERS: ATTEND Surgery Plastic and Reconstructive Surgery
DX: Z12.11 Encounter for screening for malignant neoplasm of colon (principal); Z80.0 Family history of malignant neoplasm of digestive organs; K64.0 First degree hemorrhoids; K57.90 Diverticulosis of intestine, part unspecified, without perforation or abscess without bleeding; E11.9 Type 2 diabetes mellitus without complications; I10 Essential (primary) hypertension; M10.9 Gout, unspecified; Z79.899 Other long term (current) drug therapy; Z79.84 Long term (current) use of oral hypoglycemic drugs
CPT/HCPCS: 88305; 45380; J2001; J2704